=== PATIENT | male | born 1990 | race Caucasian/White ===

== ENCOUNTER 2021-01-24 05:16 | Emergency (ER) | payer OTHER, SELFPAY ==
[2021-01-24 05:24] VITALS: BP 121/80; PULSE 78; RESP 18; TEMP 36.5; O2SAT 99; BMI 33.0
--- NOTE | 2021-01-24 05:34 | ED_ITS ---
HPI - Back Pain/Injury General Chief Complaint: Back Pain/Injury Stated Complaint: shoulder pain Time Seen by Provider: 01/24/21 05:29 Source: patient Mode of arrival: ambulatory Limitations: no limitations History of Present Illness HPI Narrative: Patient comes to emergency room complaining of a pulled muscle behind the shoulder, below the axilla, radiating towards the left neck. Patient states he was at work, he grabbed with his left hand a 20 lb bag of ice, tossed it, immediately patient started feeling muscle spasms. Patient is able to move his shoulder, denies shoulder joint pain. Related Data Previous Rx's Medication Instructions Recorded acetaminophen [Tylenol 8 Hour] 650 mg PO Q8H PRN #10 tab 01/24/21 cyclobenzaprine 10 mg PO TID PRN #10 tab 01/24/21 Allergies Allergy/AdvReac Type Severity Reaction Status Date / Time No Known Allergies Allergy Verified 01/24/21 05:28 Review of Systems Review of Systems: Constitutional : No Weight loss, No Fever, No Chills, No Night Sweats, No Fatigue, No Malaise ENT/Mouth : No Hearing loss, No Ear Pain, No Nasal Congestion, No Sinus Pain, No Hoarseness, No sore throat, No Rhinorrhea, No Swallowing Difficulty Eyes: No Eye Pain, No Swelling, No Redness, No Foreign Body, No Discharge, No Vision Changes Cardiovascular : No Chest Pain, No SOB, No Dyspnea on Exertion, No Orthopnea, No Edema, No Palpitations Respiratory : No Cough, No Sputum, No Wheezing, No Smoke Exposure, No Dyspnea Gastrointestinal : No Nausea, No Vomiting, No Diarrhea, No Constipation, No abdominal Pain, No Hematochezia, No Melena Genitourinary : no irregular bleeding, No Dysuria, No Urinary Frequency, No Hematuria, No Urinary Incontinence, No Urgency, No Flank Pain, No Urinary Flow Changes, No Hesitancy Musculoskeletal : No joint pain, No Myalgias, No Joint Swelling, complaining of muscle spasms above the shoulder radiating towards the neck, above the scapula and below the clavicle Skin : No Skin Lesions, No rash Neuro : No Weakness, No Numbness, No Paresthesias, No Loss of Consciousness, No Dizziness, No Headache Psych : No Anxiety/Panic, No Depression, No SI/HI/AH/VH, No Social Issues, Heme/Lymph: No Bruising, No Bleeding,No Lymphadenopathy Endocrine : No Polyuria, No Polydipsia, No Temperature Intolerance [facility] Past Medical History Medical History ADHD Anxiety Depression Social History Social History Advance Directives: No Advance Directives Information Provided: No Physical Exam Vital Signs: Vital Signs: Last Vital Signs Temp 97.7 F 01/24/21 05:24 Pulse 78 01/24/21 05:24 Resp 18 01/24/21 05:24 BP 121/80 01/24/21 05:24 Pulse Ox 99 01/24/21 05:24 Body Mass Index 33.0 Appearance: Alert. Oriented X3. No acute distress. Eyes: Pupils equal, round and reactive to light. ENT: Pharynx normal. Neck: Normal inspection. Neck supple. No lymph nodes noted. No crepitus CVS: Normal heart rate and rhythm. Pulses normal. Normal S1 and S2 Respiratory: No respiratory distress. Breath sounds normal. No Wheezing. No rales Abdomen: Soft and nontender. No rigidity. No distention. good BS x4 Skin: Skin warm and dry. Normal skin color. Normal skin turgor. Extremities: No lower extremity edema. Patient has full range of motion bilaterally including the left arm. Patient has no shoulder pain with movement, only muscular pain above the left scapula radiating towards the left side of the neck, and below the axilla on the left side as well. Patient does have palpable muscle spasms in the upper back left side. Neuro: Oriented X 3. No motor deficit. No sensory deficit. Moving all extermities. No slurred speech. Course Course Course Narrative: I discussed the physical exam with the patient, likely muscle spasms versus pulled muscle. The shoulder joint itself is within normal limits. X-rays not indicated at this time. Dislocation/fracture not suspected. Discharge Plan Discharge Clinical Impression: Muscle spasm, Muscle strain Patient Disposition: Home, Self-Care Instructions: Muscle Strain (ED) Additional Instructions: Please follow-up with your primary care physician tomorrow. If you have any worsening or new symptoms, please return to the emergency room or call 911 Prescriptions: New cyclobenzaprine 10 mg tablet 10 mg PO TID PRN (Reason: muscle spasm) Qty: 10 RF: 0 acetaminophen [Tylenol 8 Hour] 650 mg tablet extended release 650 mg PO Q8H PRN (Reason: pain) Qty: 10 RF: 0
[2021-01-24] MEDS: Ketorolac Tromethamine 60 MG/2 ML VIAL IM (05:39)
[2021-01-24] MEDS: diazePAM 2 MG TABLET PO (05:39)
--- NOTE | 2021-01-24 05:44 | PC.NURSE ---
Pt medicated per MAR for 7/10 pain to left side of neck and left shoulder.
== END 2021-01-24 05:49 | disposition home or self-care (01) ==
PROVIDERS: Emergency Provider Emergency Medicine; PCP Pediatrics
DX: M62.830 Muscle spasm of back (principal); M54.2 Cervicalgia; Z79.899 Other long term (current) drug therapy
CPT/HCPCS: 96372; 99283; J1885